=== PATIENT | female | born 1995 | race Two or more races ===

== ENCOUNTER 2018-07-02 00:59 | Emergency (ER) | payer SELFPAY ==
[2018-07-02 01:06] VITALS: BP 139/89; PULSE 106; RESP 22; TEMP 98.3; O2SAT 97
--- NOTE | 2018-07-02 01:22 | ED PDOC ---
HPI: Psych/Substance Abuse Time Seen by Provider: 07/02/18 01:03 Chief Complaint (Nursing): Alcohol Ingestion Chief Complaint (Provider): etoh History Per: Patient, Other (friend) Additional Complaint(s): 22 y/o female brought in by EMS for evaluation of alcohol intoxication. Patient admits to drinking tonight, states she got into the wrong uber so they called 911. Patient friend at bedside, states they live in [place] and are going to take an Uber home together. Patient denies acute medical or psychiatric complaints. Past Medical History Reviewed: Historical Data, Nursing Documentation, Vital Signs Vital Signs: Last Vital Signs Temp 98.3 F 07/02/18 01:05 Pulse 106 H 07/02/18 01:05 Resp 22 07/02/18 01:05 BP 139/89 07/02/18 01:05 Pulse Ox 97 07/02/18 01:05 - Medical History PMH: No Chronic Diseases - Surgical History Surgical History: No Surg Hx - Family History Family History: States: No Known Family Hx - Allergies Allergies/Adverse Reactions: Allergies Allergy/AdvReac Type Severity Reaction Status Date / Time No Known Allergies Allergy Verified 07/02/18 01:03 Review of Systems ROS Statement: Except As Marked, All Systems Reviewed And Found Negative Physical Exam - Reviewed Nursing Documentation Reviewed: Yes Vital Signs Reviewed: Yes - Physical Exam Appears: Positive for: Well, Non-toxic, No Acute Distress Head Exam: Positive for: ATRAUMATIC, NORMAL INSPECTION, NORMOCEPHALIC Skin: Positive for: Normal Color Eye Exam: Positive for: Normal appearance ENT: Positive for: Normal ENT Inspection Cardiovascular/Chest: Positive for: Regular Rate, Rhythm Respiratory: Positive for: Normal Breath Sounds Gastrointestinal/Abdominal: Positive for: Normal Exam Back: Positive for: Normal Inspection Extremity: Positive for: Normal ROM Neurologic/Psych: Positive for: Alert, Oriented (x3) - ECG O2 Sat by Pulse Oximetry: 97 - Progress ED Course And Treament: Patient AAOx3; ambulating steady gait Patient requires no further intervention in the ED and is stable for discharge at this time Disposition - Clinical Impression Clinical Impression: Alcohol use - Patient ED Disposition Is Patient to be Admitted: No Counseled Patient/Family Regarding: Diagnosis, Need For Followup - Disposition Disposition: Routine/Home Disposition Time: Condition: GOOD Instructions: Alcohol Use - When Is Drinking a Problem?
== END 2018-07-02 01:15 | disposition home or self-care (01) ==
LOC: H.ER 00:59
DX: F10.129 Alcohol abuse with intoxication, unspecified (principal)